=== PATIENT | female | born 1980 | race Caucasian/White ===

== ENCOUNTER 2016-12-30 15:47 | Emergency (ER) | payer OTHER ==
[~2016-12-30] VITALS: Ht 165.1 cm; Wt 113.4 kg
== END 2016-12-30 17:24 | disposition home or self-care (01) ==
LOC: CED 15:47
DX: R51 Headache (principal); G89.29 Other chronic pain; F17.200 Nicotine dependence, unspecified, uncomplicated; Z88.2 Allergy status to sulfonamides
CPT/HCPCS: 96374; 96375; 99284; J1200; J1885; J2550